=== PATIENT | male | born 1985 | race Caucasian/White ===

== ENCOUNTER 2017-02-12 15:03 | Inpatient (IN) | payer OTHER ==
[2017-02-12] MEDS ORDERED: LORazepam 2 MG/ML INJ ONE (15:37)
[2017-02-12] MEDS ORDERED: LORazepam 2 MG/ML INJ IVP ONE ×3 (15:44→16:42)
[2017-02-12] MEDS ORDERED: ONDANSETRON 4 MG/2 ML VIAL IVP ONE (15:44)
[2017-02-12] MEDS ORDERED: NS 1,000 ML IV ONE (15:45)
[2017-02-12 15:56] LABS: PLATELET COUNT 203 10^3/uL (150-400)
[2017-02-12] MEDS ORDERED: FOLIC ACID 1 MG TAB PO ONE (16:06)
[2017-02-12] MEDS ORDERED: THIAMINE HCL 100 MG TAB PO ONE (16:06)
--- NOTE | 2017-02-12 16:06 | CPEKG ---
Heart Rate: 70 RR Interval: 857 P-R Interval: 148 QRSD Interval: 106 QT Interval: 436 QTC Interval: 471 P Rhod[place]: 14 QRS Rhodell: -2 T Wave Rhod[place]: 3 EKG Severity - ABNORMAL ECG - EKG Impression: SINUS RHYTHM EKG Impression: NONSPECIFIC T ABNORMALITIES, ANTERIOR LEADS EKG Impression: BORDERLINE PROLONGED QT INTERVAL Electronically Signed By: Paco Vu 12-Feb-2017 21:05:19
--- NOTE | 2017-02-12 16:07 | EDPHY ---
General - History Smoking Status: Never smoked Narrative: CHIEF COMPLAINT: Alcohol withdrawal seizure HISTORY OF PRESENT ILLNESS: Patient presents to the ER with reports of possible seizure. He does not know exactly what happened, but the report from his mother brought him here is that he had a seizure. This lasted for several seconds. This was likely due to lack of alcohol. He is an admitted alcoholic with no intake of alcohol for 3 days. He normally ingest 2 day drinks of vodka per day. Nothing in the last 72 hr. He has had 1 incidence of alcohol withdrawal seizure in the past. He has no chest pain or shortness of breath. He does eat and drink food regularly. No other associated complaints or modifying factors. REVIEW OF SYSTEMS: Ten systems reviewed and are negative unless otherwise noted in the HPI PCP: Dr. Shiv Jaimes SPECIALISTS: None PAST MEDICAL HISTORY: Hypertension, alcohol abuse PAST SURGICAL HISTORY: Been recently. Two thousand sixteen right knee surgery. SOCIAL HISTORY: Nonsmoker. Daily alcohol use. No drug use. 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 No murmur Gastrointestinal: Abdomen is soft and nontender Back: non-tender, no bony abnormalities Neurological: GCS 15. Cranial nerves 2-12 grossly intact. A&O, nonfocal, mild tremor. Strength symmetric. No pronator drift. No dysmetria Skin: Warm and dry, no rash Extremities: Nontender, no pedal edema Psychiatric: Tremulous and anxious. DIFFERENTIAL DIAGNOSES: Including but not limited to alcohol withdrawal seizures, DTs, dehydration, alcoholic cardiomyopathy MDM: 3:45 p.m. Likely alcohol withdrawal seizure. The patient is tremulous but not tachycardic or febrile. I discussed with his father, a retired physician. This conversation was approved by the patient prior to doing so. He says the patient exhibited grand mal seizure activity. He is concerned he is going into delirium tremens. He would like the patient admitted for further care and he would like the patient be seen by physician I discussed with Dr. Vu he will evaluate the patient 4:10 p.m. EKG has been performed and it is abnormal. There are inverted T-waves in leads V2, V3 and V4. Dr. Vu has reviewed this. We have ordered an echocardiogram. We have ordered troponin. I have also verbalized acute 15 min Ativan 2 mg IV. Patient will need to be admitted to the hospitalist for further care. 4:[address] Vu has discussed the case with disc jockey regarding the abnormal EKG and the pending echo. He is receiving 2 mg IV Ativan every 15 min and remains on a computer operations technician. Laboratory studies are unremarkable. Troponin is negative. Echocardiogram is currently being performed. Dr. Vu has discussed case with the hospitalist, and He has been admitted in stable condition at this time SUPERVISION: Patient was evaluated and examined in conjunction with my secondary supervising physician as documented. We have both examined the patient. (Bulmaro Eason) 1610: Assessed patient in conjunction with KAUR Eason. Patient states he binge drinks regularly, but his last drink was 3 days ago. Has received 4mg of Ativan and states he "can't even feel it." He is mildly tremulous on exam. His EKG showed possible ischemia in inferior leads and I have ordered an echocardiogram to further evaluate this and admission to manage his withdrawal. Patient is reluctant to stay in the hospital. Discussed my concern for cardiac ischemia due to his EKG and history of alcohol abuse. The patient agrees to stay for now and complete cardiac testing. Additional Ativan ordered. Troponin pending. EtOH serum level is 0. The 12 lead EKG was interpreted by myself. Inverted T waves in inferior leads could indicate ischemia. See hard copy and/or "tracemaster" electronic copy for interpretation. Consulted with Dr. Hamilton, disc jockey. He will consult on patient during admission. Spoke with hospitalist. Dr. Culp accepts admission. 1644: Echocardiogram is normal per Dr. Hamilton. 1655: Spoke with patient's parents and updated her on work up thus far. His mother tells me he's had difficulties with alcohol since his 20s that accelerated after a tibial plateau fracture over a year ago. He's been admitted 4 times for alcohol withdrawal/seizures/alcoholic pancreatitis. She says he has been unwilling to address his alcohol abuse issues and they are currently not able to care for him at their home. She also tells me he lost his job, , house, and may go to [facility] soon. (Paco Vu) - Objective Vital Signs: Initial Vital Signs Temperature (C) 36.8 C 02/12/17 15:21 Heart Rate 80 02/12/17 15:21 Respiratory Rate 16 02/12/17 15:21 Blood Pressure 163/115 H 02/12/17 15:21 O2 Sat (%) 96 02/12/17 15:21 O2 Delivery Mode Room Air Allergies/Adverse Reactions: No Known Allergies Allergy (Verified 02/12/17 16:53) Home Medications: Medication Instructions Recorded Fluoxetine HCl [Prozac 40 mg] 40 mg PO DAILY 02/12/17 Herbals/Supplements -Info Only 1 ea PO DAILY 02/12/17 Metoprolol Succinate Xr [Toprol Xl 50 mg PO DAILY 02/12/17 50 mg (*)] Naltrexone HCl 50 mg PO DAILY 02/12/17 Naproxen Sodium [Aleve 220 MG (*)] 220 mg PO BID PRN 02/12/17 [place]-3 Fatty Acids [Fish Oil 1000 1,000 mg PO DAILY 02/12/17 mg (*)] Propranolol HCl [Inderal 40mg (*)] 40 mg PO DAILY 02/12/17 amLODIPine BESYLATE [Norvasc 10 mg 10 mg PO DAILY 02/12/17 (*)] Laboratory Results: Laboratory Results 02/12/17 15:50 02/12/17 15:50 02/12/17 02/12/17 02/12/17 15:50 15:50 15:50 WBC 6.71 10^3/uL 10^3/uL (3.80-9.50) RBC 5.02 10^6/uL 10^6/uL (4.40-6.38) Hgb 16.8 g/dL g/dL (13.7-17.5) Hct 46.5 % % (40.0-51.0) MCV 92.6 fL fL (81.5-99.8) MCH 33.5 pg pg (27.9-34.1) MCHC 36.1 g/dL g/dL (32.4-36.7) RDW 14.3 % % (11.5-15.2) Plt Count 203 10^3/uL 10^3/uL (150-400) MPV 8.8 fL fL (8.7-11.7) Neut % (Auto) 74.3 % H % (39.3-74.2) Lymph % (Auto) 15.4 % % (15.0-45.0) [place] % (Auto) 8.9 % % (4.5-13.0) Eos % (Auto) 0.1 % L % (0.6-7.6) Baso % (Auto) 1.0 % % (0.3-1.7) Nucleat RBC Rel Count 0.0 % % (0.0-0.2) Absolute Neuts (auto) 4.98 10^3/uL 10^3/uL (1.70-6.50) Absolute Lymphs (auto) 1.03 10^3/uL 10^3/uL (1.00-3.00) Absolute Monos (auto) 0.60 10^3/uL 10^3/uL (0.30-0.80) Absolute Eos (auto) 0.01 10^3/uL L 10^3/uL (0.03-0.40) Absolute Basos (auto) 0.07 10^3/uL 10^3/uL (0.02-0.10) Absolute Nucleated RBC 0.00 10^3/uL 10^3/uL (0-0.01) Immature Gran % 0.3 % % (0.0-1.1) Immature Gran # 0.02 10^3/uL 10^3/uL (0.00-0.10) Sodium 135 mEq/L mEq/L (134-144) Potassium 4.1 mEq/L mEq/L (3.5-5.2) Chloride 96 mEq/L L mEq/L (97-110) Carbon Dioxide 25 mEq/l mEq/l (22-31) Anion Gap 14 mEq/L mEq/L (8-16) BUN 6 mg/dL L mg/dL (7-23) Creatinine 0.6 mg/dL L mg/dL (0.7-1.3) Estimated GFR > 60 Glucose 157 mg/dL H mg/dL (70-100) Calcium 10.4 mg/dL mg/dL (8.5-10.4) Creatine Kinase 137 IU/L IU/L (0-224) Troponin I < 0.012 ng/mL ng/mL (0.000-0.034) Ethyl Alcohol < 10 mg/dL mg/dL (0-10) Medications Given: Discontinued Medications Folic Acid (Folic Acid) 1 mg PO EDNOW ONE Stop: 02/12/17 16:07 Last Admin: 02/12/17 16:12 Dose: Not Given Sodium Chloride (Ns) 1,000 mls @ 0 mls/hr IV EDNOW ONE; Wide Open PRN Reason: Protocol Stop: 02/12/17 15:46 Last Admin: 02/12/17 16:00 Dose: 1,000 mls Lorazepam (Ativan Injection) 2 mg IVP EDNOW ONE Stop: 02/12/17 15:45 Last Admin: 02/12/17 15:47 Dose: 2 mg Lorazepam (Ativan Injection) 2 mg IVP EDNOW ONE Stop: 02/12/17 16:06 Last Admin: 02/12/17 16:13 Dose: 2 mg Lorazepam (Ativan Injection) 2 mg IVP ONCE ONE Stop: 02/12/17 16:43 Last Admin: 02/12/17 16:50 Dose: 2 mg Ondansetron HCl (Zofran) 4 mg IVP EDNOW ONE Stop: 02/12/17 15:45 Last Admin: 02/12/17 16:01 Dose: Not Given Thiamine HCl (Vitamin B-1) 100 mg PO EDNOW ONE Stop: 02/12/17 16:07 Last Admin: 02/12/17 16:13 Dose: 100 mg Departure - Departure Disposition: [facility] Acute Clinical Impression: Alcohol withdrawal seizure Qualifiers: Complication of substance-induced condition: with unspecified complication Qualified Code(s): F10.239 - Alcohol dependence with withdrawal, unspecified Condition: Fair
[2017-02-12 16:15] LABS: CREATINE KINASE 137 IU/L (0-224)
--- NOTE | 2017-02-12 16:49 | ECHO ---
[email or web address] [address] [address] Main: [phone] Fax: Transthoracic Echocardiogram Name: SABRINA SANCHEZ MR#: [id number] Study Date: 02/12/2017 Study Time: 04:29 PM Date of : 1985 Age: 31 year(s) Height: 180.3 cm (71 in.) Weight: 79.38 kg (175 lb.) BSA: 1.99 m2 Gender: Male Examination: Echo Indication: Abnormal ecg Image Quality: Adequate Contrast: Requested by: Bulmaro Eason BP: 168 mmHg/113 mmHg Heart Rate: Rhythm: Indication: Abnormal ecg Procedure Staff Drop Wire Aligner: Camille Ramey Reading Physician: Carlos Enrique Hamilton Requesting Provider: Conclusions: Normal size left ventricle. No LV hypertrophy. Normal global systolic LV function. EF is 63 %. No regional wall motion abnormality. Normal RV function. The mitral valve is normal in appearance and function. There is no mitral valve regurgitation. The aortic valve is normal in appearance and function. There is no aortic valve regurgitation. The tricuspid valve is normal in appearance and function. Trivial tricuspid valve regurgitation. Measurements: Chambers Valvular Assessment AV/MV Valvular Assessment TV/PV Normal Normal Normal Name Value Range Name Value Range Name Value Range IVSd (2D): 1.0 cm (0.6 cm-1.1 AV Vmax: 1.23 m/s (1 m/s-1.7 PV Vmax: 0.93 m/s (0.6 m/s-0.9 cm) m/s) m/s) LVDd (2D): 4.6 cm (4.2 cm-5.9 AV maxP mmHg ( - ) PV PGmax: 3 mmHg ( - ) cm) LVOT Vmax: 1.00 m/s (0.7 m/s-1.1 LVDs (2D): 2.8 cm (2.1 cm-4 m/s) cm) MV E Vmax: 0.50 m/s ( - ) LVPWd (2D): 0.9 cm (0.6 cm-1 MV A Vmax: 0.67 m/s ( - ) cm) MV E/A: 0.75 ( - ) LVEF (BP): 63 % (>=55 %) RVDd(2D): 3.3 cm (1.9 cm-3.8 cmmm) Continued Measurements: Patient: SABRINA SANCHEZ Study Date: 02/12/2017 Page 1 of 2 04:29 PM Chambers Valvular Assessment AV/MV Name Value Name Value LADs Lon.7 cm MV DecTime: 169 m/s LA Area: 17.5 cm2 MV E/E' Septal: 7.50 LA Volume: 52 ml MV E/E' Lateral: 6.40 LA Volume Index: 26.1 ml/m2 Additional Vessels Name Value Ao Ascendin.4 cm Findings: Left Ventricle: Normal size left ventricle. No LV hypertrophy. Normal global systolic LV function. EF is 63 %. No regional wall motion abnormality. Normal diastolic LV function. Right Ventricle: Normal size right ventricle. Normal RV function. Left Atrium: The left atrium is normal in size. Right Atrium: The right atrium is normal in size. Mitral Valve: The mitral valve is normal in appearance and function. There is no mitral valve regurgitation. Aortic Valve: The aortic valve is normal in appearance and function. There is no aortic valve regurgitation. Tricuspid Valve: The tricuspid valve is normal in appearance and function. Trivial tricuspid valve regurgitation. Pulmonary artery pressure is not obtained due to inadequate TR jet. Pulmonic Valve: The pulmonic valve is normal in appearance and function. Aorta: The aorta is normal. Normal size ascending aorta measuring 3.4 cm. Pericardium: No pericardial effusion. (No Signature Object) Patient: SABRINA SANCHEZ Study Date: 02/12/2017 Page 2 of 2 04:29 PM [id number]
--- NOTE | 2017-02-12 16:54 | CPEKG ---
Heart Rate: 64 RR Interval: 938 P-R Interval: 144 QRSD Interval: 102 QT Interval: 452 QTC Interval: 467 P [place]: 15 QRS [place]: 2 T Wave [place]: -16 EKG Severity - ABNORMAL ECG - EKG Impression: SINUS RHYTHM EKG Impression: NONSPECIFIC T ABNORMALITIES, ANTERIOR LEADS Electronically Signed By: Paco Vu 12-Feb-2017 21:05:19
[2017-02-12] MEDS ORDERED: chlordiazePOXIDE 25 MG CAP PO PRN (17:38)
[2017-02-12] MEDS ORDERED: NS 1,000 ML IV SCH (17:45)
[2017-02-12] MEDS ORDERED: DEXMEDETOMIDINE HCL 400 MCG in NS 100 ML IV SCH (18:00)
[2017-02-12] MEDS ORDERED: ONDANSETRON 4 MG/2 ML VIAL IVP PRN (18:00)
[2017-02-12] MEDS ORDERED: ACETAMINOPHEN 500 MG TAB PO PRN (18:00)
[2017-02-12] MEDS ORDERED: PROMETHAZINE HCL 25 MG/ML INJ IVP PRN (18:00)
[2017-02-12] MEDS ORDERED: DEXMEDETOMIDINE/NS 4MCG/ML 100 ML BTL IV ONE (18:31)
[2017-02-12] MEDS: DEXMEDETOMIDINE IN 0.9 % NACL 100 ML IV SCH (18:43)
--- NOTE | 2017-02-12 19:49 | GHP ---
[f rep st] HISTORY AND PHYSICAL DATE OF ADMISSION: 02/12/2017 CHIEF COMPLAINT: Seizure. HISTORY: The patient is a 31-year-old male, a known alcoholic, who had a seizure at home. He is cur rently living with his parents. His father is a retired local plastic surgeon. He was on the phone dealing with some personal matters related to his divorce when his father heard him scream out a stra nge noise. He ran downstairs and found him having a grand mal seizure. He is drinking vodka daily, 2-8 shooters per day. He quit 3 days ago and is trying to quit indefinitely. There has been no ches t pain or shortness of breath. He denies decreased p.o. intake. He was sitting in a chair at the ti me of the event, so he did not injure himself with the seizure. He has had an alcohol withdrawal sei zure in the past. PAST MEDICAL HISTORY: 1. Hypertension. 2. Alcoholism. 3. Alcohol withdrawal seizure. 4. Alcoholic pancreatitis. MEDICATIONS: Please see the computer record for the full detailed list. ALLERGIES: No known drug allergies. SOCIAL HISTORY: No smoking. He has been drinking since age 18, but it has accelerated in the last y ear. 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 He is now on workman's comp and living at his parent's home. He is recently due to his alcoholism. His father is a local retired plastic surgeon. He has no other drug use. The kandice block has approved us to communicate with his father directly regarding all matters. His father has left 2 phone numbers for us: [phone] and [phone]. REVIEW OF SYSTEMS: A complete review of systems was obtained. The review of systems is negative on constitutional, HEENT, GI, pulmonary, cardiovascular, , hematology, skin, muscular, endocrine, and psych except for positives noted in the HPI. FAMILY HISTORY: Reviewed and noncontributory to the current complaint. PHYSICAL EXAMINATION: GENERAL: Well-developed, well-nourished male, in no acute distress. VITAL SI GNS: Temperature 36.8, pulse 80, blood pressure 163/115, satting 96% on room air. EYES: Normal con junctivae. Pupils react to light. ENT: Normal ears and nose. Hearing intact. Normal teeth. Orop harynx moist. NECK: Trachea midline. No thyromegaly. CHEST: Normal respiratory effort. LUNGS: Clear to auscultation bilaterally. CARDIOVASCULAR: Regular rhythm. No murmur. No extremity edema. ABDOMEN: Soft, nontender. No hepatosplenomegaly. SKIN: Warm, dry, intact. No rash. MUSCULOSKE LETAL: No cyanosis or clubbing. Strength 5/5 in the upper and lower extremities. NEUROLOGIC: Cran ial nerves intact. Normal sensation to light touch. PSYCH: Alert and oriented x3. Normal affect. Normal judgment. Normal memory. LABORATORY DATA: White count 6.7, hematocrit 46.5, platelets 203. Sodium 135, potassium 4.1, chlori de 96, bicarb 25, BUN 6, creatinine 0.6, glucose 157. Troponin is negative. Alcohol level is negati ve. EKG was viewed by me. My personal interpretation is a normal sinus rhythm and anterior T-wave i nversions. Echocardiogram done in the emergency room shows an ejection fraction of 63% and no wall m otion abnormalities. ASSESSMENT AND PLAN: 1. Alcohol withdrawal with seizure. He has had a high benzodiazepine requirement in the emergency r oom, already getting 6 mg of IV Ativan. He is being admitted to step-down, as he is high risk for ne eding a Precedex drip overnight. We will also prescribe IV thiamine. 2. Increased liver function tests, likely alcoholic hepatitis. We will check an ultrasound and hepa titis panel. 3. Hypertension. Continue his Norvasc and metoprolol. 4. Anterior T-wave inversions. He is not having any chest pain. His troponins are negative. We wi ll follow the troponins serially. Echo done in the emergency room is normal. Could consider stress testing after alcohol withdrawal has resolved. CODE STATUS: Full. ADMISSION STATUS: We will admit to inpatient, as he is medically complex, and I anticipate greater t hart 2 midnights will be required for stabilization. DVT PROPHYLAXIS: He is moderate risk. We will place him on subcu Lovenox. /[id number]/MODL
--- NOTE | 2017-02-12 23:58 | PDMN ---
Medical Necessity Medical necessity: C/M review: Patient meets INPT criteria under [facility] Substance related disorders: Acute and persistent alcohol withdrawal with seizure, increased liver function tests, likely alcoholic hepatitis, total bilirubin 1.9, AST 132, ALT 148, Alk phos 152, anterior T-wave inversions on EKG requiring ongoing IV Precedex infusion, IV fluids, IV thiamine, cardiac monitoring, CIWA protocol in SDU, comorbid hypertension, history alcoholism, alcohol withdrawal seizure, alcoholic pancreatitis. anticipates > 2 MN LOS for ongoing med nec for eval and TX of above.
[2017-02-13] MEDS: DEXMEDETOMIDINE IN 0.9 % NACL 100 ML IV SCH (03:46)
[2017-02-13 04:27] LABS: PLATELET COUNT 134 10^3/uL (150-400)
[2017-02-13 04:37] LABS: INR 1.17 (0.83-1.16); PROTIME(PATIENT) 15.1 SEC (12.0-15.0)
[2017-02-13] MEDS: LORazepam 2 MG/ML INJ IVP PRN ×4 (08:18→23:25)
[2017-02-13] MEDS ORDERED: THIAMINE HCL 100 MG in NS 100 ML IV SCH (09:00)
[2017-02-13] MEDS: ENOXAPARIN 40 MG/0.4 ML SYR SC SCH ×2 (09:00→09:14)
[2017-02-13] MEDS: PROPRANOLOL HCL 40 MG TAB PO SCH (09:14)
[2017-02-13] MEDS: ASPIRIN EC 81 MG TAB PO SCH (09:14)
[2017-02-13] MEDS: NALTREXONE HCL 50 MG TAB PO SCH (09:14)
[2017-02-13] MEDS: FLUoxetine 20 MG CAP PO SCH (09:14)
[2017-02-13] MEDS: METOPROLOL SUCCINATE XR 50 MG TAB PO SCH (09:14)
--- NOTE | 2017-02-13 10:10 | HOSPPROG ---
Hospitalist Progress Note Assessment/Plan: Alcohol withdrawal - CIWA 8-11, currently on precedex. -schedule Librium -cont prn ativan -wean precedex as able -CM for resource counseling, pt wishes to maintain sobriety Elevated LFT's - Likely alcohol induced hepatitis, steatohepatitis noted on u/s Hypertension - hastened by etoh / withdrawal -cont norvasc, metoprolol Abnormal EKG - T wave inversions noted, suspect this is related to etoh w/d. Trops neg. CP free. -outpt stress test Full code Dispo - cont inpt / SDU Subjective: Pt doing ok. A bit fidgety, confused. Says he has to leave. Denies hallucinations. No fevers. No N/V/D or abdominal pain. Objective: Vital Signs Temp Pulse Resp BP Pulse Ox 36.7 C 64 13 145/102 H 95 02/13/17 08:00 02/13/17 08:00 02/13/17 08:00 02/13/17 08:00 02/13/17 08:00 Laboratory Results 02/13/17 04:10 02/13/17 04:10 02/12/17 02/13/17 02/14/17 05:59 05:59 05:59 Intake Total 1050 Output Total 2750 Balance -1700 PT 15.1 SEC (12.0-15.0) H 02/13/17 04:10 INR 1.17 (0.83-1.16) H 02/13/17 04:10 - Physical Exam Constitutional: no apparent distress Eyes: PERRL Ears, Nose, Mouth, Throat: moist mucous membranes Cardiovascular: regular rate and rhythym Respiratory: no respiratory distress Gastrointestinal: normoactive bowel sounds, soft, non-tender abdomen Skin: warm Musculoskeletal: full muscle strength Neurologic: AAOx3 Psychiatric: interacting appropriately ICD10 Worksheet Patient Problems: Problems Problem Status Onset Alcohol withdrawal seizure Acute
[2017-02-13] MEDS ORDERED: chlordiazePOXIDE 25 MG CAP PO PRN (10:12)
[2017-02-13] MEDS ORDERED: chlordiazePOXIDE 25 MG CAP PO SCH ×2 (10:51→16:00)
[2017-02-13] MEDS: chlordiazePOXIDE 25 MG CAP PO SCH ×3 (10:59→21:32)
[2017-02-13] MEDS ORDERED: PROTOCOL MAGNESIUM 1 DOSE IV PRN (15:24)
[2017-02-13] MEDS ORDERED: PROTOCOL K PHOSPHATE 1 DOSE IV PRN (15:24)
[2017-02-13] MEDS ORDERED: PROTOCOL POTASSIUM 1 DOSE MISC PRN (15:24)
[2017-02-13] MEDS ORDERED: MAGNESIUM SULF 1 GM/DEXTROSE 100 ML BAG IV ONE (15:40)
[2017-02-13] MEDS ORDERED: MAGNESIUM SULF 1 GM/DEXTROSE 100 ML IV ONE (15:41)
[2017-02-13] MEDS ORDERED: POTASSIUM CL 10 MEQ TAB PO ONE (15:58)
--- NOTE | 2017-02-13 18:06 | ASMTCMCOM ---
CM Note CM Note Notes: Per ICU rounds, pt admitted following a witnessed seizure; currently in alcohol withdrawal w/ an abnormal EKG. Per RONALDO Pedraza, pt wishing to leave against medical advice. Met w/ pt to discuss drinking hx. Pt reports being recently . He states he has been living in [facility] and drinks 2-10 drinks/day - "the little shooter bottles." The pt states he "will be moving to [place] in the next couple of weeks and will be moving in with his parents." The pt says he wants to quit drinking, but isn't sure he is ready now. He says he has previously been to inpt ETOH treatment at [facility] ([place], [place]). Offered pt resources for both [facility] and [facility] - pt open to discussing. Alcohol resources and treatment center information provided. Pt also requesting assistance w/ a Medicaid application. [employer] [employer] business cards provided. Pt encouraged to seek treatment. Support and reassurance provided. Pt's parents encouraged pt to stay in hospital - pt agreed to stay one more night. If pt stays through Wednesday, CM will contact Gwen Alejandro for assistance w/ a Medicaid application. CM will cont to follow. Current Discharge Plan: To be determined Date Signed: 02/13/2017 06:05 PM Electronically Signed By:Sandra Puentes RN
[2017-02-14 00:01] VITALS: TEMP 98.8
[2017-02-14 06:52] VITALS: RESP 16
[2017-02-14 08:27] VITALS: BP 151/112; PULSE 78; O2SAT 98
[2017-02-14] MEDS: ASPIRIN EC 81 MG TAB PO SCH (08:27)
[2017-02-14] MEDS: FLUoxetine 20 MG CAP PO SCH (08:27)
[2017-02-14] MEDS: chlordiazePOXIDE 25 MG CAP PO SCH (08:27)
[2017-02-14] MEDS: METOPROLOL SUCCINATE XR 50 MG TAB PO SCH (08:27)
[2017-02-14] MEDS: PROPRANOLOL HCL 40 MG TAB PO SCH (08:27)
[2017-02-14] MEDS: ENOXAPARIN 40 MG/0.4 ML SYR SC SCH (08:28)
[2017-02-14] MEDS: NALTREXONE HCL 50 MG TAB PO SCH (08:28)
[2017-02-14] MEDS ORDERED: THIAMINE HCL 100 MG TAB PO SCH (09:00)
--- NOTE | 2017-02-14 10:47 | GDS ---
[f rep st] DISCHARGE SUMMARY DISCHARGE DIAGNOSES: 1. Seizure secondary to alcohol withdrawal. 2. Alcohol dependence, in withdrawal. 3. Alcohol-induced hepatitis. 4. Hypertension. 5. Abnormal EKG with T-wave inversions, likely secondary to alcohol withdrawal. HISTORY: For details, please see dictated History and Physical dated February 12, 2017. In brief, the patient is a 31-year-old male with a history of alcohol dependence, [facility] He was admitted to the hospital for further management. HOSPITAL COURSE: The patient was admitted to the step-down unit in active alcohol withdrawal. He wa s treated with high-dose benzodiazepines in the emergency department and required a Precedex drip ove rnight. This was weaned off the following day, and he was placed on scheduled Librium. His CIWA sco res have trended down to just 1 this morning. He had mildly elevated liver enzymes on arrival, likel y secondary to alcohol-induced hepatitis. An abdominal ultrasound was performed and showed fatty inf iltration of a mildly enlarged liver. Hepatitis panel was sent and is currently pending. Urine tox screen was otherwise negative. It was noted that he had some T-wave inversions on arrival in the set ting of alcohol withdrawal and seizure. He has been chest pain free and has negative troponins. I d iscussed the case with Cardiology, and they recommend that he have outpatient followup for considerat ion of further risk stratification and stress testing. On the day of discharge, symptoms are signifi cantly improved, and he wishes to discharge home. DISPOSITION: The patient is discharged home in stable condition. FOLLOWUP: 1. Dr. Shiv Jaimes, primary care. 2. Dr. Sergio Gerard, [facility], for consideration of outpatient stress testing. DISCHARGE MEDICATIONS: Please see [employer] for complete updated outpatient medication list. New med ications on discharge include Librium 50 mg t.i.d. for 1 day, then 25 mg t.i.d. for 1 day, then 25 mg b.i.d. for 1 day, then off; thiamine 100 mg p.o. daily, #30, no refills. He will continue all other outpatient medications as prescribed. /[id number]/MODL
--- NOTE | 2017-02-14 16:42 | ASDISCHSUM ---
Discharge Information Plan Status:Has needs-TBD Medically Cleared to Leave: Discharge Date:02/14/2017 09:50 AM CM D/C Disposition: ADT D/C Disposition:Home, Routine, Self-Care Projected Discharge Date:02/14/2017 09:50 AM Transportation at D/C: Discharge Delay Reason: Follow-Up Date:02/14/2017 09:50 AM Discharge Slot: Final Diagnosis: Placement Information Patient Contact Information Contact Name:MAYLIN Relationship:Mother Address:[address] Work Phone: City:[place] [facility] Phone: State/Zip Code:[place] [address] Email: Financial Information Financial Class:HMO and PPO Plans Primary Plan Desc:[facility] Primary Plan Number:[id number] Secondary Plan Desc: Secondary Plan Number: Assessment Information [facility] Progress Note CM Note CM Note Notes: Per ICU rounds, pt admitted following a witnessed seizure; currently in alcohol withdrawal w/ an abnormal EKG. Per Keila RN, pt wishing to leave against medical advice. Met w/ pt to discuss drinking hx. Pt reports being recently . He states he has been living in [facility] and drinks 2-10 drinks/day - "the little shooter bottles." The pt states he "will be moving to [place] in the next couple of weeks and will be moving in with his parents." The pt says he wants to quit drinking, but isn't sure he is ready now. He says he has previously been to inpt ETOH treatment at [facility]. Offered pt resources for both [facility] and [facility] - pt open to discussing. Alcohol resources and treatment center information provided. Pt also requesting assistance w/ a Medicaid application. [employer] business cards provided. Pt encouraged to seek treatment. Support and reassurance provided. Pt's parents encouraged pt to stay in hospital - pt agreed to stay one more night. If pt stays through Wednesday, CM will contact Gwen Alejandro for assistance w/ a Medicaid application. CM will cont to follow. Current Discharge Plan: To be determined Date Signed: 02/13/2017 06:05 PM Electronically Signed By:Sandra Puentes RN Case Management Discharge Plan Note Case Management Discharge Discharge Order Complete? Answers: Yes Followup Appointment 02/14/2017 12:00 AM Patient to Obtain Answers: Independently Medications Transport will Pick (Date 02/14/2017 12:00 AM & Time) Discharge Comments Notes: Patient wanting to discharge. ETOH tx res given 02/13/17. No other needs at this time. Date Signed: 02/14/2017 04:42 PM Electronically Signed By:Lorri Fernando LCSW Intervention Information
[2017-02-15 04:27] LABS: HEPATITIS B SURFACE ANTIGEN NEGATIVE (NEGATIVE)
[2017-02-15 04:33] LABS: HEPATITIS A ANTIBODY IGM (BCH) NEGATIVE (NEGATIVE); HEPATITIS B CORE AB IGM NEGATIVE (NEGATIVE)
[2017-02-15 04:45] LABS: HEPATITIS C ANTIBODY TOTAL NEGATIVE (NEGATIVE)
== END 2017-02-14 09:50 | disposition home or self-care (01) | DRG 897 ==
LOC: OBSVTOIN 16:26 → F2N 18:27
PROVIDERS: ADMIT Internal Medicine; ATTEND Hospitalist
PROC: HZ2ZZZZ Detoxification Services for Substance Abuse Treatment (ICD-10-PCS; principal; 2017-02-12)
DX: F10.288 Alcohol dependence with other alcohol-induced disorder (principal); R56.9 Unspecified convulsions; K70.10 Alcoholic hepatitis without ascites; R94.31 Abnormal electrocardiogram [ECG] [EKG]; I10 Essential (primary) hypertension
CPT/HCPCS: 80305; 96374; G0472; G0480; J1650; J2060; J3411; J3475

== ENCOUNTER 2017-03-25 23:28 | Inpatient (IN) | payer SELFPAY ==
[2017-03-25] MEDS ORDERED: LORazepam 2 MG/ML INJ ONE (23:31)
[2017-03-25] MEDS ORDERED: NS 1,000 ML IV ONE ×2 (23:31→23:35)
--- NOTE | 2017-03-25 23:31 | EDPHY ---
H & P HPI/ROS: HPI CHIEF COMPLAINT: Alcohol draw, alcohol withdrawal seizure, head injury HISTORY OF PRESENT ILLNESS: This patient is a 31-year-old male, alcoholic, drinks vodka daily, his last drink was 48 hr ago or 2 days ago additionally has hypertension who presents emergency room after reported generalized tonic- clonic seizure. He presents by private vehicle with his father. His father is a physician. Patient appears to be going through acute withdrawal. He is not hallucinating. He is noted to be tachycardic and tremulous. With arm extend she is full tremors, as well as tongue fasciculations. Denies any pain anywhere. The patient really fell he states 2 days ago he has ecchymosis around the right eye. He has a laceration to the right lateral orbit that was repaired by his father with sutures at home. Past Medical History: Alcoholism, hypertension Past Surgical History: No recent surgery Social History: Daily alcohol use. Denies illicit drugs or tobacco. Family History: Noncontributory ROS REVIEW OF SYSTEMS: A comprehensive 10 point review of systems is otherwise negative aside from elements mentioned in the history of present illness. Exam Constitutional appears tremulous, anxious triage nursing summary reviewed, vital signs reviewed, awake/alert. Eyes normal conjunctivae and sclera, EOMI, PERRLA. HENT normal inspection, atraumatic, moist mucus membranes, no epistaxis, neck supple/ no meningismus, no raccoon eyes. Respiratory clear to auscultation bilaterally, normal breath sounds, no respiratory distress, no wheezing. Cardiovascular tachycardic, regular rhythm, no murmur, no edema, distal pulses normal. Gastrointestinal soft, non-tender, no rebound, no guarding, normal bowel sounds, no distension, no pulsatile mass. Genitourinary no CVA tenderness. Musculoskeletal no midline vertebral tenderness, full range of motion, no calf swelling, no tenderness of extremities, no meningismus, good pulses, neurovascularly intact. Skin pink, warm, & dry, no rash, skin atraumatic. Neurologic tremulous, awake, alert and oriented x 3, AAOx3, moves all 4 extremities equally, motor intact, sensory intact, CN II-XII intact, normal cerebellar, normal vision, normal speech. Psychiatric normal mood/affect. Heme/Lymph/Immune no lymphadenopathy. Differential Diagnosis: Includes but is not limited to in a particular order acute alcohol intoxication, alcohol withdrawal, alcohol withdrawal seizure, DTs Medical Decision Making: Plan for this patient IV establishment with 2 mg IV Ativan as he is tachycardic and going to withdrawal, IV fluids, thiamine and folate, CT scan of his head without contrast for trauma due to significant ecchymosis around the right eye and right lateral orbital laceration. Re-evaluation: 1200AM: CT scan head without contrast negative for acute traumatic injury no bleed. No subdural or epidural. Called to me by Dr. Ackerman 1221AM: Re-examination patient is feeling better after 4 mg IV Ativan. Patient is on CIWA protocol. This patient need to be admitted to the intensive care unit of for alcohol withdrawal. Given the tachycardia, tremulous. Currently his heart rate is 125, blood pressure 137/97, pulse ox 96% on room air. He is receiving 2 L of fluid. He has received 4 mg IV Ativan. Will continue to closely monitor. Electrolytes are pending. Plan for this patient mission the hospital for alcohol withdrawal. 1233: Spoke hospalist service Dr. Grace, agrees this patient need to be admitted to the hospital for significant call withdrawal. I have slotted him an ICU bed. He is hemodynamically stable this time remains tachycardic but much improved since arrival. Critical Care: Total Critical Care Time Spent Managing this Patient: 65Minutes. This time was spent Exclusively with this patient. This Care was exclusive of procedures. The Organ System/life at risk was hemodynamically, cardiac, neurological due to alcohol withdrawal This Patient was in Critical Condition because alcohol withdrawal 0138AM; re-evaluation the patient has a total of 7 mg IV Ativan and is resting comfortably. Current vitals show a heart rate of 99, blood pressure 127/76 pulse ox 96% on room air. He is resting comfortably. He is not nearly as tremulous or shaky as he was. He is receiving IV fluids. Patient be admitted ICU for alcohol withdrawal. Source: Patient - Medical/Surgical History Other PMH: etoh abuse, knee surgery w/ plate to tibia, shoulder surgery, hernia repair - Social History Smoking Status: Never smoked Constitutional: Initial Vital Signs Temperature (C) 36.6 C 03/25/17 23:32 Heart Rate 140 H 03/25/17 23:32 Respiratory Rate 22 H 03/25/17 23:32 Blood Pressure 156/108 H 03/25/17 23:32 O2 Sat (%) 95 03/25/17 23:32 O2 Delivery Mode Room Air Allergies/Adverse Reactions: No Known Allergies Allergy (Verified 03/25/17 23:32) Home Medications: Medication Instructions Recorded Fluoxetine HCl [Prozac 40 mg] 40 mg PO DAILY 02/12/17 Herbals/Supplements -Info Only 1 ea PO DAILY 02/12/17 Metoprolol Succinate Xr [Toprol Xl 50 mg PO DAILY 02/12/17 50 mg (*)] Naltrexone HCl 50 mg PO DAILY 02/12/17 [place]-3 Fatty Acids [Fish Oil 1000 1,000 mg PO DAILY 02/12/17 mg (*)] Propranolol HCl [Inderal 40mg (*)] 40 mg PO DAILY 02/12/17 amLODIPine BESYLATE [Norvasc 10 mg 10 mg PO DAILY 02/12/17 (*)] Thiamine HCl [Vitamin B-1] 100 mg PO DAILY #30 tab 02/14/17 chlordiazePOXIDE [Librium 25 mg 50 mg PO TID #10 cap 02/14/17 (*)] Medical Decision Making - Diagnostics Imaging Results: Imaging Impressions Head CT 03/25/17 23:34 Impression: 1. Premature atrophy without acute brain trauma. 2. Right superficial periorbital soft tissue swelling without underlying injury. Results called to Dr. Deluna at 11:58 pm. General information for patients regarding this examination can be found at [email or web address]. If you have questions or comments about this report, please contact me at (hospital) or [phone] (cell). - Data Points Laboratory Results: Laboratory Results 03/25/17 23:39 03/25/17 23:39 03/25/17 03/25/17 23:39 23:39 WBC 9.71 10^3/uL H 10^3/uL (3.80-9.50) RBC 4.68 10^6/uL 10^6/uL (4.40-6.38) Hgb 15.6 g/dL g/dL (13.7-17.5) Hct 45.3 % % (40.0-51.0) MCV 96.8 fL fL (81.5-99.8) MCH 33.3 pg pg (27.9-34.1) MCHC 34.4 g/dL g/dL (32.4-36.7) RDW 13.3 % % (11.5-15.2) Plt Count 86 10^3/uL L 10^3/uL (150-400) MPV 9.6 fL fL (8.7-11.7) Neut % (Auto) 84.7 % H % (39.3-74.2) Lymph % (Auto) 8.8 % L % (15.0-45.0) Yates % (Auto) 5.7 % % (4.5-13.0) Eos % (Auto) 0.0 % L % (0.6-7.6) Baso % (Auto) 0.3 % % (0.3-1.7) Nucleat RBC Rel Count 0.0 % % (0.0-0.2) Absolute Neuts (auto) 8.23 10^3/uL H 10^3/uL (1.70-6.50) Absolute Lymphs (auto) 0.85 10^3/uL L 10^3/uL (1.00-3.00) Absolute Monos (auto) 0.55 10^3/uL 10^3/uL (0.30-0.80) Absolute Eos (auto) 0.00 10^3/uL L 10^3/uL (0.03-0.40) Absolute Basos (auto) 0.03 10^3/uL 10^3/uL (0.02-0.10) Absolute Nucleated RBC 0.00 10^3/uL 10^3/uL (0-0.01) Immature Gran % 0.5 % % (0.0-1.1) Immature Gran # 0.05 10^3/uL 10^3/uL (0.00-0.10) Sodium 146 mEq/L H mEq/L (135-145) Potassium 3.4 mEq/L L mEq/L (3.5-5.2) Chloride 100 mEq/L mEq/L (97-110) Carbon Dioxide 20 mEq/l L mEq/l (22-31) Anion Gap 26 mEq/L H mEq/L (8-16) BUN 9 mg/dL mg/dL (7-23) Creatinine 0.8 mg/dL mg/dL (0.7-1.3) Estimated GFR > 60 Glucose 189 mg/dL H mg/dL (70-100) Calcium 10.3 mg/dL mg/dL (8.5-10.4) Magnesium 1.9 mg/dL mg/dL (1.6-2.3) Total Bilirubin 1.9 mg/dL H mg/dL (0.1-1.4) Conjugated Bilirubin 0.7 mg/dL H mg/dL (0.0-0.5) Unconjugated Bilirubin 1.2 mg/dL H mg/dL (0.0-1.1) AST 225 IU/L H IU/L (17-59) ALT 193 IU/L H IU/L (21-72) Alkaline Phosphatase 128 IU/L H IU/L (38-126) Total Protein 8.3 g/dL H g/dL (6.3-8.2) Albumin 5.1 g/dL H g/dL (3.5-5.0) Medications Given: Acetaminophen (Tylenol) 650 mg PO Q4HRS PRN PRN Reason: Pain, Mild/Fever, Can Take PO Stop: 09/22/17 00:33 Last Admin: 03/26/17 00:49 Dose: 650 mg Chlordiazepoxide HCl (Librium) 25 mg PO TID EMILY Stop: 09/22/17 00:44 Last Admin: 03/26/17 00:50 Dose: 25 mg Discontinued Medications Folic Acid (Folic Acid) 1 mg PO DAILY EMILY Stop: 09/21/17 23:44 Last Admin: 03/26/17 00:03 Dose: 1 mg Sodium Chloride (Ns) 1,000 mls @ 0 mls/hr IV EDNOW ONE; Wide Open PRN Reason: Protocol Stop: 03/25/17 23:32 Last Admin: 03/25/17 23:55 Dose: 1,000 mls Sodium Chloride (Ns) 1,000 mls @ 0 mls/hr IV ONCE ONE PRN Reason: Wide Open Stop: 03/25/17 23:36 Last Admin: 03/26/17 00:52 Dose: 1,000 mls Thiamine HCl 100 mg/ Sodium (Chloride) 251 mls @ 251 mls/hr IV EDNOW ONE Stop: 03/26/17 01:29 Last Admin: 03/26/17 00:40 Dose: 251 mls Lorazepam (Ativan Injection) 2 mg IVP EDNOW ONE Stop: 03/25/17 23:33 Last Admin: 03/25/17 23:30 Dose: 2 mg Lorazepam (Ativan Injection) 2 mg IVP EDNOW ONE Stop: 03/25/17 23:35 Last Admin: 03/26/17 00:10 Dose: 2 mg Lorazepam (Ativan Injection) 2 mg IVP EDNOW ONE Stop: 03/26/17 00:23 Last Admin: 03/26/17 00:38 Dose: 2 mg Lorazepam (Ativan Injection) 2 mg IVP EDNOW ONE Stop: 03/26/17 01:33 Last Admin: 03/26/17 01:33 Dose: 2 mg Departure - Departure Disposition: [facility] Inpatient Acute Clinical Impression: Alcohol withdrawal Qualifiers: Complication of substance-induced condition: uncomplicated Qualified Code(s): F10.230 - Alcohol dependence with withdrawal, uncomplicated Condition: Critical
[2017-03-25] MEDS ORDERED: LORazepam 2 MG/ML INJ IVP ONE ×2 (23:32→23:34)
[2017-03-25] MEDS ORDERED: THIAMINE HCL 100 MG in NS 250 ML IV SCH (23:45)
[2017-03-25] MEDS ORDERED: FOLIC ACID 1 MG TAB PO SCH (23:45)
[2017-03-25 23:46] LABS: PLATELET COUNT 86 10^3/uL (150-400)
[2017-03-26] MEDS ORDERED: LORazepam 2 MG/ML INJ IVP ONE ×3 (00:22→01:32)
[2017-03-26] MEDS ORDERED: THIAMINE HCL 100 MG in NS 250 ML IV ONE (00:30)
[2017-03-26] MEDS ORDERED: ACETAMINOPHEN 325 MG TAB PO PRN (00:34)
[2017-03-26] MEDS ORDERED: ONDANSETRON 4 MG/2 ML VIAL IVP PRN (00:34)
[2017-03-26] MEDS ORDERED: chlordiazePOXIDE 25 MG CAP ONE (00:48)
[2017-03-26] MEDS: chlordiazePOXIDE 25 MG CAP PO SCH ×4 (00:50→21:02)
[2017-03-26] MEDS ORDERED: PROTOCOL CALCIUM 1 DOSE IV PRN (01:37)
[2017-03-26] MEDS ORDERED: PROTOCOL MAGNESIUM 1 DOSE IV PRN (01:37)
[2017-03-26] MEDS ORDERED: PROTOCOL K PHOSPHATE 1 DOSE IV PRN (01:37)
[2017-03-26] MEDS ORDERED: PROTOCOL POTASSIUM 1 DOSE MISC PRN ×2 (01:37→18:21)
[2017-03-26] MEDS ORDERED: DEXMEDETOMIDINE IN 0.9 % NACL 50 ML IV SCH (02:00)
[2017-03-26] MEDS: NS 1,000 ML IV SCH ×2 (02:20→10:14)
[2017-03-26] MEDS: DEXMEDETOMIDINE IN 0.9 % NACL 50 ML IV SCH ×5 (02:21→10:14)
[2017-03-26] MEDS: POTASSIUM Cl (KCl) 10 MEQ in D5W 100 ML IV SCH ×3 (03:09→05:21)
--- NOTE | 2017-03-26 04:21 | GHP ---
[f rep st] HISTORY AND PHYSICAL DATE OF ADMISSION: 03/26/2017 Patient provides a history. He is awake and interactive, appears appropriate. EMR reviewed and case discussed with ED provider. CHIEF COMPLAINT: Seizure and head injury. HISTORY OF PRESENT ILLNESS: This is a pleasant 31-year-old gentleman with a long-term history of chronic alcohol dependence who presents to the emergency department today from home following a withdrawal seizure and head injury. Patient reports his last drink was 2 days ago. He does prefer to drink vodka up to a pint per day. He is interested in cessation. At home, patient sustained a generalized tonic-clonic type seizure. He did have a head injury, as he fell from standing. His father who is a surgeon was able to repair the laceration to his right anabaptist. The patient denies any current headache, numbness, tingling, focal deficits, changes in vision. Patient does have a tremor. He denies any fevers or chills. No nausea, vomiting, diarrhea, respiratory complaints, or new rashes or sores. REVIEW OF SYSTEMS: Negative except as noted above. ALLERGIES: No known drug allergies. HOME MEDICATIONS: Librium 50 mg p.o. t.i.d., amlodipine 10 mg p.o. daily, thiamin 100 mg p.o. daily, propranolol 40 mg p.o. daily, [place] fatty oils 1000 mg p.o. daily, naltrexone 50 mg p.o. daily, metoprolol succinate XR 50 mg p.o. daily, and fluoxetine 40 mg p.o. daily. PAST MEDICAL HISTORY: Significant for alcoholism with a history of alcohol seizures, benign essential hypertension. PAST SURGICAL HISTORY: Significant for knee surgery, right tibia, shoulder and hernia repairs. FAMILY HISTORY: Father with COPD. SOCIAL HISTORY: Patient reports drinking up to about a pint of vodka on a daily basis as noted above. He does not smoke or use illicit drugs. CODE STATUS: Full. PHYSICAL EXAM: VITAL SIGNS: Upon arrival to the emergency department, blood pressure 156/108, heart rate 140, respiratory rate 20, O2 saturation 95% on room air with a temperature 36.6. Vitals available at time of interview on the ICU floor: Blood pressure 141/71, heart rate 100 to 90s, respiratory rate 20, O2 saturation 94% on room air with a temperature 37.1. GENERAL: No acute distress. Pleasant adult male is lying quietly in bed. Does appear flushed and is slightly diaphoretic. He is awake, but fatigued. HEAD: Normocephalic with trauma to the right anabaptist and a contusion over his right eyelid. ENT: Mucous membranes appear slightly dry. No pharyngeal erythema. Dentition intact. NECK: Supple. Trachea midline. CV: Regular rate and rhythm. No murmurs, rubs, or gallops appreciated. RESPIRATORY: Lungs are clear to auscultation bilaterally. Shallow breathing while lying in bed. GI: Positive bowel sounds. Soft, nontender to palpation. No rebound, guarding or masses appreciated. : No suprapubic tenderness to palpation. No Montilla catheter in place. EXTREMITIES: Patient's overall strength is decline 4/5 in upper and lower extremities. He is tremulous significantly. Moves his distal extremities. PSYCH: The patient is oriented to person, place, time, but does not recall exact events leading up to his ED stay. LABORATORY DATA: WBC 9.71, H and H 15.6 and 45.3, MCV of 96.8, platelet count is 86, neutrophil percent 84.7%, no bands. Sodium is 146, potassium 3.4, chloride 100, CO2 of 20, anion gap is 26, BUN 9, creatinine 0.8, GFR greater than 60. Glucose 189, calcium 10.3, magnesium 1.9, total bilirubin is 1.9, calculated bilirubin 0.7, ALT is 193, alkaline phosphatase 128, total protein 8.3, albumin 5.1. CT head: Image report reviewed, premature atrophy without acute brain trauma. Right superficial periorbital soft tissue swelling without any underlying injury. Right superficial periorbital soft tissue swelling without underlying injury. ASSESSMENT AND PLAN: This is a pleasant 31-year-old gentleman with a history of long-term alcohol dependence, now in withdrawal: 1. History of alcoholism withdrawal now with seizure. Patient received up to 8 mg of IV Ativan since emergency department evaluation. He was started on Precedex on his arrival up, which we will continue. He continues to have a significant tremor and will continue to monitor closely. Patient's CIWA protocol has been ordered. 2. Systemic inflammatory response syndrome without sepsis. 3. Thrombocytopenia likely related to patient's chronic alcohol dependence. 4. Transaminitis, as above. 5. Hyperkalemia, will supplement. 6. Hypernatremia, likely related to dehydration, now improving. 7. Hyperglycemia. The patient without any previous history of diabetes. Will plan to monitor in the morning and address if needed. 8. Total bilirubin. 9. Fluid, electrolyte, nutrition. IV fluids, electrolyte monitoring. 10. Diet, as tolerated. 11. Prophylaxis, sequential compression device. Holding anticoagulation. 12. Code status: FULL COR DISPOSITION: The patient will be admitted inpatient status on the unit for close monitoring and evaluation for correction of labs as noted above. /[id number]/MODL MTDD
[2017-03-26 05:48] LABS: PLATELET COUNT 43 10^3/uL (150-400)
[2017-03-26 05:52] LABS: INR 1.23 (0.83-1.16); PROTIME(PATIENT) 15.7 SEC (12.0-15.0)
[2017-03-26] MEDS: FOLIC ACID 1 MG TAB PO SCH (08:37)
[2017-03-26] MEDS: THIAMINE HCL 100 MG TAB PO SCH (08:38)
[2017-03-26] MEDS: MULTIVITAMINS 1 EACH TAB PO SCH (08:38)
--- NOTE | 2017-03-26 11:04 | PDMN ---
Medical Necessity Medical necessity: Patient meets inpatient criteria per physician note and [facility] Substance-Related Disorder (long-term history of chronic alcohol dependence ; withdrawal seizure and fall, striking his head and sustaining laceration; tachycardia to 140 and significantly tremulous, hyperkalemia, hypernatremia, SIRS without sepsis; anion gap 26; anticipated LOS > 2 midnights for alcohol withdrawal, IV Precedex, IV hydration, ICU monitoring and correction of electrolyte imbalances.)
[2017-03-26] MEDS ORDERED: chlordiazePOXIDE 25 MG CAP PO ONE (13:48)
--- NOTE | 2017-03-26 13:53 | GCON ---
[f rep st] CONSULTATION PULMONARY/CRITICAL CARE CONSULTATION. DATE OF CONSULTATION: 03/26/2017 REFERRING PHYSICIAN: Saima Grace MD REASON FOR REFERRAL: Evaluation and management of alcohol withdrawal and seizure. HISTORY: The patient is a 31-year-old male with a long history of chronic alcohol dependence. He wa s admitted here a month ago with alcohol withdrawal symptoms. He apparently started drinking again a nd then stopped drinking 2 days ago. He usually drinks vodka up to a pint a day. He had a generaliz ed seizure that resulted in a head laceration. His father, who is a plastic surgeon, repaired the la ceration, and the patient presented to the emergency department. There he was given 8 mg of IV Ativa n and started on a Precedex drip as well as p.o. Librium. At my direction the Precedex was stopped e arlier today and upon seeing him now he reports that he is not having any tremors or hallucinations, and does not feel that he is having significant withdrawal symptoms. He has no nausea or vomiting. He has been able to take some fluids, but does not have much appetite for food. PAST MEDICAL HISTORY: 1. Alcoholism. 2. Hypertension. MEDICATIONS: At the time of admission include Librium, amlodipine, thiamine, propranolol, naltrexone , metoprolol, and fluoxetine. ALLERGIES: None. SOCIAL HISTORY: The patient has a history of heavy daily alcohol use. He does not smoke. FAMILY HISTORY: Unremarkable. REVIEW OF SYSTEMS: A 10-point review of systems adds nothing to the history of present illness. PHYSICAL EXAMINATION: GENERAL: The patient is awake and alert. He is in no acute distress. VITAL SIGNS: Blood pressure is 140/100 with a heart rate of 65. He is afebrile. Oxygen saturations are 9 6% on 2 L. HEENT: He has ecchymoses and laceration over his left anabaptism. No icterus. NECK: No [place] nopathy. Trachea is midline. CHEST: Clear to auscultation. CARDIAC: Regular rate and rhythm with out murmur. ABDOMEN: Soft, nontender. Bowel sounds are present. EXTREMITIES: No clubbing, cyanos is, or edema. NEURO: The patient is awake, alert, and oriented. He has minimal tremor and no gross motor or sensory deficits. LABORATORY: Hemoglobin is 12.8, down from 15.6. Chemistry group is unremarkable and AST is 159, sendy n from 225 last night. A bilirubin is 1.8. Total protein is 6.2. An alcohol level was less than [address] scan of the head shows some premature atrophy. Images reviewed. ASSESSMENT: 1. Seizure. This is likely related to alcohol withdrawal. The patient has been loaded with benzodi azepines and has not had any further seizures. 2. Alcohol withdrawal. The patient had a seizure and has had tremors, but his Clinical [facility] Assessment score is now less than 5. He is not requiring regular IV benzodiazepines. He is on oral Librium. He is interested in quitting alcohol. 3. Hypertension. The patient has chronic hypertension and is mildly hypertensive here. RECOMMENDATIONS: 1. Advance diet as tolerated. 2. PT and OT to evaluate the patient. 3. Okay to transfer to the floor on the [facility] protocol. 4. Automobile Tester will get involved to offer outpatient resources. /[id number]/MODL
[2017-03-26] MEDS ORDERED: POTASSIUM CL 20 MEQ TAB PO ONE (14:45)
[2017-03-26] MEDS ORDERED: POTASSIUM Cl (KCl) 100 ML IV SCH (14:45)
--- NOTE | 2017-03-26 15:56 | ASMTCASEMG ---
Living Arrangements What is your living Answers: WIth Both Parents/1 Home arrangement? Who do you live with? Type Of Residence What kind of residence do Answers: House you live in? Discharge Plan Comments Coordination Status Comments Notes: Patient is a 31yyo male with a hx of alcoholism who admits to drinking a pint of vodka a day. He was admitted for seizure, alcohol withdrawal, and hypertension. SENIOR QUALITY METHODS SPECIALIST has been ordered. Patient's CT scan shows some premature atrophy. Patient on a CIWA protocol. Unable to do CAGE today as patient is unable to participate. CM will follow. Date Signed: 03/26/2017 03:55 PM Electronically Signed By:Larissa Cerda LCSW
--- NOTE | 2017-03-26 16:14 | ASMTCMCOM ---
CM Note CM Note Notes: Met with patient's brother Sergio who is visibly concerned for his brother as the family has not been consistent in dealing with the issues involving patient's alcoholism. Sergio states patient has been living in his parents basement and they have some enabling behaviors. Sergio states his brother has clinical depression and severe social anxiety and he thinks these factors are impacting getting him into treatment. Agreed to contact Vi to get a Medicaid application started for patient and Geeta patient's mom will sign the paperwork for him. Geeta came to the hospital in the afternoon and she was given multiple resources for both inpatient and outpatient treatment. We also discussed having patient evaluated for medicine assisted treatment since patient has not responded well to traditional treatment. Geeta was given the information on the [facility] program in [place] as well as all the suboxone providers. Patient's mother Geeta states she is looking into involuntary treatment and has started the paperwork on this option if it comes to that. Sergio called back in the afternoon and would like to have copies of everything that was given to his mother. He will come by Wednesday as I don't have time to duplicate today. Patient will be moved to the floor today. Geeta was told she can ask questions of therapeutic case manager on the floor as well. CM will follow. Date Signed: 03/26/2017 04:13 PM Electronically Signed By:Larissa Cerda LCSW
[2017-03-26] MEDS ORDERED: BACITRACIN OINTMENT 1 PACKET TP ONE (17:47)
[2017-03-26] MEDS: LORazepam 2 MG/ML INJ IVP PRN (21:57)
[2017-03-27] MEDS: oxyCODONE IR 5 MG TAB PO PRN ×6 (00:52→23:29)
[2017-03-27 04:59] LABS: PLATELET COUNT 48 10^3/uL (150-400)
[2017-03-27] MEDS: FOLIC ACID 1 MG TAB PO SCH (08:58)
[2017-03-27] MEDS: chlordiazePOXIDE 25 MG CAP PO SCH ×3 (08:58→21:20)
[2017-03-27] MEDS: FLUoxetine 20 MG CAP PO SCH (08:58)
[2017-03-27] MEDS: MULTIVITAMINS 1 EACH TAB PO SCH (08:59)
[2017-03-27] MEDS: METOPROLOL SUCCINATE XR 50 MG TAB PO SCH (08:59)
[2017-03-27] MEDS: OMEGA-3 FATTY ACIDS 1,000 MG CAP PO SCH (08:59)
[2017-03-27] MEDS: THIAMINE HCL 100 MG TAB PO SCH (08:59)
[2017-03-27] MEDS ORDERED: THIAMINE HCL 100 MG TAB PO SCH (09:00)
[2017-03-27] MEDS ORDERED: Herbals/Supplements -Info Only PO SCH (09:00)
[2017-03-27] MEDS ORDERED: MULTIVITAMINS 1 EACH TAB PO SCH (09:00)
[2017-03-27] MEDS ORDERED: POTASSIUM CL 10 MEQ TAB PO ONE (10:28)
--- NOTE | 2017-03-27 10:45 | HOSPPROG ---
Hospitalist Progress Note Assessment/Plan: 31 yo M w alcohol withdrawal and seizures alcoholic hepatitis: improved repeat in AM seizure: 2/2 alcohol withdrawal no AED's withdrawal: acute improving but not resolved continue scheduled librium orbital lac: sutures out in 3-4 days father is a plastic surgeon who placed them, can remove proph: ambulatory dispo: inpt Subjective: more alert. diaphoretic Objective: Vital Signs Temp Pulse Resp BP Pulse Ox 37.2 C 87 14 130/85 H 96 03/27/17 07:46 03/27/17 08:59 03/27/17 07:46 03/27/17 08:58 03/27/17 07:46 Laboratory Results 03/27/17 04:40 03/27/17 04:40 03/26/17 03/27/17 03/28/17 05:59 05:59 05:59 Intake Total 2962 5211 Output Total 0 5000 Balance 2962 211 PT 15.7 SEC (12.0-15.0) H 03/26/17 05:32 INR 1.23 (0.83-1.16) H 03/26/17 05:32 - Physical Exam Constitutional: no apparent distress, appears nourished Eyes: PERRL, anicteric sclera Ears, Nose, Mouth, Throat: moist mucous membranes, hearing normal Cardiovascular: regular rate and rhythym, no murmur, rub, or gallop Respiratory: no respiratory distress, no rales or rhonchi Gastrointestinal: normoactive bowel sounds, soft, non-tender abdomen Genitourinary: no bladder fullness, No goss in urethra Skin: warm, normal color Musculoskeletal: full muscle strength, no muscle tenderness Neurologic: AAOx3 Psychiatric: interacting appropriately ICD10 Worksheet Patient Problems: Problems Problem Status Onset Alcohol withdrawal Acute Alcohol withdrawal seizure Acute
[2017-03-27] MEDS: PROPRANOLOL HCL 40 MG TAB PO SCH (11:52)
[2017-03-27] MEDS ORDERED: MAGNESIUM SULF 1 GM/DEXTROSE 100 ML IV ONE (12:30)
[2017-03-27] MEDS: LORazepam 2 MG/ML INJ IVP PRN (14:10)
[2017-03-27 23:31] VITALS: RESP 16
[2017-03-28] MEDS: LORazepam 2 MG/ML INJ IVP PRN (01:43)
[2017-03-28 05:23] LABS: PLATELET COUNT 59 10^3/uL (150-400)
[2017-03-28 07:14] VITALS: BP 134/89; PULSE 73; TEMP 98.9; O2SAT 92
[2017-03-28] MEDS: chlordiazePOXIDE 25 MG CAP PO SCH (09:01)
[2017-03-28] MEDS: FOLIC ACID 1 MG TAB PO SCH (09:01)
[2017-03-28] MEDS: OMEGA-3 FATTY ACIDS 1,000 MG CAP PO SCH (09:01)
[2017-03-28] MEDS: MULTIVITAMINS 1 EACH TAB PO SCH (09:01)
[2017-03-28] MEDS: FLUoxetine 20 MG CAP PO SCH (09:01)
[2017-03-28] MEDS: METOPROLOL SUCCINATE XR 50 MG TAB PO SCH (09:01)
[2017-03-28] MEDS: PROPRANOLOL HCL 40 MG TAB PO SCH (09:02)
[2017-03-28] MEDS: THIAMINE HCL 100 MG TAB PO SCH (09:02)
--- NOTE | 2017-03-28 09:05 | HOSPPROG ---
Hospitalist Progress Note Assessment/Plan: 31 yo M w alcohol withdrawal and seizures alcoholic hepatitis: improved repeat in AM seizure: 2/2 alcohol withdrawal no AED's withdrawal: acute improving but not resolved continue scheduled librium orbital lac: sutures out in 3-4 days father is a plastic surgeon who placed them, can remove proph: ambulatory dispo: home today > 30 minutes Subjective: feels well. ready for dc Objective: Vital Signs Temp Pulse Resp BP Pulse Ox 37.2 C 73 16 134/89 H 92 03/28/17 07:11 03/28/17 07:11 03/28/17 07:11 03/28/17 07:11 03/28/17 07:11 Laboratory Results 03/28/17 04:57 03/28/17 04:57 03/27/17 03/28/17 03/29/17 05:59 05:59 05:59 Intake Total 5211 1850 Output Total 5000 3 Balance 211 1847 PT 15.7 SEC (12.0-15.0) H 03/26/17 05:32 INR 1.23 (0.83-1.16) H 03/26/17 05:32 - Physical Exam Constitutional: no apparent distress, appears nourished Eyes: PERRL, anicteric sclera Ears, Nose, Mouth, Throat: moist mucous membranes, hearing normal Cardiovascular: regular rate and rhythym, no murmur, rub, or gallop, No tachycardia Respiratory: no respiratory distress, no rales or rhonchi Gastrointestinal: normoactive bowel sounds, soft, non-tender abdomen Genitourinary: no bladder fullness Skin: warm Musculoskeletal: full muscle strength Neurologic: AAOx3, sensation intact bilaterally Psychiatric: interacting appropriately ICD10 Worksheet Patient Problems: Problems Problem Status Onset Alcohol withdrawal Acute Alcohol withdrawal seizure Acute
--- NOTE | 2017-03-28 09:20 | GDS ---
[f rep st] DISCHARGE SUMMARY DISCHARGE DIAGNOSES: 1. Alcohol dependence. 2. Alcohol withdrawal. 3. Alcohol withdrawal seizures. 4. Temporal laceration sutured by his father who is a plastic surgeon. 5. Hypertension. 6. Tremor. HOSPITAL COURSE: The patient presented with a fall and a seizure. He made a volitional decision to quit alcohol and he had the aforementioned seizure. He had a normal noncontrast head CT and mild alc ohol hepatitis. He was managed with Librium and did well. He is not tachycardic. He was alert. Hi s tremor had improved, and he was feeling well ready for discharge. /[id number]/MODL
== END 2017-03-28 10:15 | disposition home or self-care (01) | DRG 897 ==
LOC: F2N 03-26 01:03 → F3N 03-26 17:56
PROVIDERS: ADMIT Family Medicine; ATTEND Internal Medicine
PROC: HZ2ZZZZ Detoxification Services for Substance Abuse Treatment (ICD-10-PCS; principal; 2017-03-26)
DX: F10.239 Alcohol dependence with withdrawal, unspecified (principal); F10.288 Alcohol dependence with other alcohol-induced disorder; R56.9 Unspecified convulsions; S01.01XA Laceration without foreign body of scalp, initial encounter; R00.0 Tachycardia, unspecified; K70.10 Alcoholic hepatitis without ascites; R25.1 Tremor, unspecified; I10 Essential (primary) hypertension; W01.10XA Fall on same level from slipping, tripping and stumbling with subsequent striking against unspecified object, initial encounter; Y92.019 Unspecified place in single-family (private) house as the place of occurrence of the external cause; D69.59 Other secondary thrombocytopenia; E87.0 Hyperosmolality and hypernatremia; E86.0 Dehydration; R73.9 Hyperglycemia, unspecified; Y90.9 Presence of alcohol in blood, level not specified
CPT/HCPCS: 92507-GN; 92523-GN; J2060; J3411; J3475; J3480

== ENCOUNTER 2017-06-06 02:35 | Emergency (ER) | payer MEDICAID ==
--- NOTE | 2017-06-06 03:48 | EDPHY ---
H & P Stated Complaint: CI ?fall? Time Seen by Provider: 06/06/17 03:41 HPI/ROS: HPI The patient presents brought in by ambulance for altered mental status. He was house sitting and a roommate found him lying on the ground, intoxicated, and diaphoretic. He called 911. The patient is unable to provide any history himself. Upon review of records, he has had 2 admissions to the hospital for alcohol withdrawal including seizures. REVIEW OF SYSTEMS Constitutional: No fever, no chills. Eyes: No discharge. ENT: No sore throat. Cardiovascular: No chest pain, no palpitations. Respiratory: No cough, no shortness of breath. Gastrointestinal: No abdominal pain, no vomiting. Genitourinary: No hematuria. Musculoskeletal: No back pain. Skin: No rashes. Neurological: No headache. PMHx: Alcohol abuse, hypertension Soc Hx: Currently house sitting, history of alcohol abuse PHYSICAL General Appearance: Sedated and snoring, arouses to verbal stimuli Eyes: Pupils equal and round no pallor or injection ENT, Mouth: Mucous membranes moist Respiratory: There are no retractions, lungs are clear to auscultation Cardiovascular: Regular rate and rhythm Gastrointestinal: Abdomen is soft and non-tender, no masses, bowel sounds normal Neurological: Moves all extremities Skin: Warm and dry, no rashes Musculoskeletal: Neck is supple non tender Extremities: symmetrical, full range of motion Psychiatric: No agitation present Source: Patient Exam Limitations: No limitations - Personal History Current Tetanus/Diphtheria Vaccine: Unsure Current Tetanus Diphtheria and Acellular Pertussis (TDAP): Unsure - Medical/Surgical History Hx Asthma: No Hx Chronic Respiratory Disease: No Hx Diabetes: No Hx Cardiac Disease: No Hx Renal Disease: No Hx Cirrhosis: No Hx Alcoholism: No Hx HIV/AIDS: No Hx Splenectomy or Spleen Trauma: No Other PMH: ETOH abuse - Social History Smoking Status: Never smoked Constitutional: Initial Vital Signs Temperature (C) 36.7 C 06/06/17 02:35 Heart Rate 88 06/06/17 02:35 Respiratory Rate 16 06/06/17 02:35 Blood Pressure 122/79 H 06/06/17 02:35 O2 Sat (%) 88 L 06/06/17 02:35 O2 Delivery Mode Room Air Allergies/Adverse Reactions: No Known Allergies Allergy (Verified 03/25/17 23:32) Home Medications: Medication Instructions Recorded Fluoxetine HCl [Prozac 40 mg] 40 mg PO DAILY 02/12/17 Herbals/Supplements -Info Only 1 ea PO DAILY 02/12/17 Metoprolol Succinate Xr [Toprol Xl 50 mg PO DAILY 02/12/17 50 mg (*)] Kulm-3 Fatty Acids [Fish Oil 1000 1,000 mg PO DAILY 02/12/17 mg (*)] Propranolol HCl [Inderal 40mg (*)] 40 mg PO DAILY 02/12/17 amLODIPine BESYLATE [Norvasc 10 mg 10 mg PO DAILY 02/12/17 (*)] Thiamine HCl [Vitamin B-1] 100 mg PO DAILY #30 tab 02/14/17 Multivitamins [Multivitamin (*)] 1 each PO DAILY 03/26/17 Medical Decision Making Differential Diagnosis: This is a 31-year-old male with history of alcohol abuse and alcohol withdrawal presenting with altered mental status, found by her roommate lying on the ground diaphoretic and nonresponsive. On exam, he has normal vital signs, he is quite sedate though rouses to verbal stimuli. He has a grossly normal neurologic exam, moving all extremities. Differential diagnosis includes alcohol intoxication, polysubstance abuse, closed head injury. In the emergency department, patient was given IV fluids. Alcohol level was 500. I suspect that all of his symptoms can be explained by severe alcohol intoxication. We will observe him here. The patient eventually awoke, removed his IV and was walking with a steady gait. While he does appear intoxicated, he has a normal neurologic evaluation. I do not feel he needs a CT scan of his head is there are no signs of closed head injury or actual trauma. He was able to call a family member to pick about from the emergency department. I asked him if you would like to go to [facility], however he declines. - Data Points Laboratory Results: Laboratory Results 06/06/17 03:42 06/06/17 06/06/17 03:42 02:45 Sodium 143 mEq/L mEq/L (135-145) Potassium 4.0 mEq/L mEq/L (3.5-5.2) Chloride 107 mEq/L mEq/L (97-110) Carbon Dioxide 16 mEq/l L mEq/l (22-31) Anion Gap 20 mEq/L H mEq/L (8-16) BUN 16 mg/dL mg/dL (7-23) Creatinine 1.1 mg/dL mg/dL (0.7-1.3) Estimated GFR > 60 Glucose 111 mg/dL H mg/dL (70-100) Calcium 8.4 mg/dL L mg/dL (8.5-10.4) Total Bilirubin 0.6 mg/dL mg/dL (0.1-1.4) AST 108 IU/L H IU/L (17-59) ALT 85 IU/L H IU/L (21-72) Alkaline Phosphatase 83 IU/L IU/L (38-126) Total Protein 7.5 g/dL g/dL (6.3-8.2) Albumin 4.2 g/dL g/dL (3.5-5.0) Ethyl Alcohol 508 mg/dL H* mg/dL (0-10) Departure - Departure Disposition: Home, Routine, Self-Care Clinical Impression: Alcoholic intoxication Qualifiers: Complication of substance-induced condition: with delirium Qualified Code(s): F10.921 - Alcohol use, unspecified with intoxication delirium Altered mental status Qualifiers: Altered mental status type: disorientation Qualified Code(s): R41.0 - Disorientation, unspecified Condition: Good Instructions: Alcohol Intoxication (ED), Abuse of Alcohol (ED) Additional Instructions: Please return to the emergency department if your worse in any way. Referrals: NONE *PRIMARY CARE P,. [Primary Care Provider] - As per Instructions
[2017-06-06 04:39] VITALS: BP 115/54
== END 2017-06-06 07:34 | disposition home or self-care (01) ==
LOC: EDUNIT#
DX: R41.0 Disorientation, unspecified (principal); F10.921 Alcohol use, unspecified with intoxication delirium; I10 Essential (primary) hypertension
CPT/HCPCS: G0480